=== PATIENT | female | born 1960 | race Caucasian/White ===

== ENCOUNTER 2025-02-26 16:32 | Emergency (ER) | payer MEDICARE, SELFPAY ==
[2025-02-26 16:34] VITALS: BP 170/97
[2025-02-26 17:04] LABS: Hematocrit 43.0 % (37.0-47.0); Hemoglobin 14.5 g/dL (12.0-16.0); Mean Corp Hgb Conc. 33.7 g/dL (33.0-37.0); Mean Corpuscular Volume 89.2 fL (81.0-99.0); Nucleated Red Blood Cells % 0 %; Platelet Count 260 10^3/uL (130-400); Red Cell Dist. Width 12.6 % (11.5-14.5)
[2025-02-26 17:14] LABS: ALT (SGPT) 50 U/L (0-35); AST (SGOT) 41 U/L (14-36); Albumin 4.4 g/dl (3.5-5.0); Alkaline Phosphatase 104 U/L (38-126); Blood Urea Nitrogen 17 mg/dl (7-17); Calcium 9.9 mg/dl (8.4-10.2); Carbon Dioxide 28 mmol/L (22-30); Chloride 104 mmol/L (98-107); Glucose 168 mg/dl (70-99); Potassium 4.6 mmol/L (3.5-5.1); Sodium 137 mmol/L (135-145); Total Protein 6.8 g/dl (6.3-8.2); eGFR > 60.00
[2025-02-26 19:01] VITALS: BP 145/75
[2025-02-26 19:17] VITALS: BMI 41.6
[2025-02-26] MEDS: TYLENOL 1000 MG PO (19:46)
--- NOTE | 2025-02-26 19:53 | ED.GENMED ---
History of Present Illness
General
Chief Complaint: Facial Problem
Time Seen by Provider: 02/26/25 18:43
History of Present Illness
History of Present Illness:
62-year-old female with prior history of lymphoma, in remission, presenting to the emergency department for left facial paralysis. Patient reports she noticed the symptoms a few hours prior to arrival when she was at the pool. She reports that her
face just felt strange, and was not moving the same as the right side of her face. Does note that she has been having a headache. Denies any head trauma or fall. Last week she felt strange sensation in her left upper jaw. Denies any fever.
Denies neck pain. Denies any weakness or numbness to her extremities. Denies any numbness to her face. Denies any recent bug bite or tick exposure. Denies additional acute medical complaint
Phy Exam
Physical Exam
Physical Exam:
General: Well-appearing, no clinical signs of dehydration, nontoxic and in no acute distress
HEENT: protecting airway
Neck: appears supple
CV: Normal heart rate, regular rhythm
Resp: No accessory muscle use, no increased work of breathing, lungs clear to auscultation bilaterally
Abd: No distention
Extremities: No deformities, no swelling
Neuro: alert, mild paralysis to the left side of the face, isolated. Sensation intact. No additional focal neurologic deficits
: deferred
Rectal: deferred
Psych: Normal affect
Skin: Intact
Course
Orders/Labs/Results
Orders:
Orders
02/26/25 16:48
CT Head W/o Iv Contrast Urgent
Comment:
Reason For Exam: left headache
02/26/25 16:49
Complete Blood Count/With Diff Urgent
Comprehensive Metabolic Panel Urgent
Lyme Progressive Urgent
02/26/25 19:43
Acetaminophen [Tylenol] 1,000 mg PO NOW STA
02/26/25 20:58
Prednisone [Deltasone] 60 mg PO NOW STA
Valacyclovir HCl [Valtrex] 1,000 mg PO ONCE ONE
Abnormal Lab Results
02/26/25
16:49
Absolute Lymphs (auto) 0.9 L 10^3/uL
(1.2-3.4)
Lymphocytes % 15.1 L %
(20.5-51.1)
Monocytes % 11.2 H %
(1.7-9.3)
Glucose 168 H mg/dl
(70-99)
AST 41 H U/L
(14-36)
ALT 50 H U/L
(0-35)
02/26/25 16:49
02/26/25 16:49
Vital Signs
Initial and Last Documented VS:
Initial Vital Signs
Temp Pulse Resp BP Pulse Ox
97.6 F 91 20 170/97 97
02/26/25 16:34 02/26/25 16:34 02/26/25 16:34 02/26/25 16:34 02/26/25 16:34
Last Documented Vital Signs
Temp Pulse Resp BP Pulse Ox
97.6 F 87 16 133/73 95
02/26/25 16:34 02/26/25 20:00 02/26/25 20:00 02/26/25 20:00 02/26/25 20:00
MDM/Problems Addressed
MDM/Problems Addressed:
64-year-old female presenting to the emergency department for left-sided facial paralysis. Vital signs on arrival significant for mild hypertension, however improved without intervention.
On exam, patient is resting comfortably, no acute distress or discomfort. Patient has mild paralysis to the left side of the face, isolated to the left side of the face and including the entire left side. Symptoms appear most consistent with
palsy. No additional focal neurologic deficits with intact strength and sensation to bilateral upper and lower extremities. Without present concern for acute CVA. CT brain ordered prior to my assessment. Will obtain. Labs also drawn prior to my
assessment, unremarkable. Will also send a Lyme titer given endemic region and current season of summer. Patient afebrile, nontoxic, no meningismus. No tender cervical lymphadenopathy. Given early onset of symptoms, will start on steroids as
well as acyclovir
20:50 - CT brain is unremarkable. On reassessment patient remained stable. Ultimately feel stable for discharge with close interval follow-up with primary care doctor. Prescriptions sent for both steroids and valacyclovir. Return precautions
discussed and patient verbalized understanding.
*Pulse Oximetry
SaO2: 95
Oxygen Mode of Delivery: Room air
Patient hypoxic: no
*Critical Care Note
Total Time (30-74mins, 75-104mins- exclusive of procedures): Not Applicable
ED Attending Note
-
Portions of this chart may have been created with voice recognition software.� Occasional wrong word or��sound alike� substitutions may have occurred due to the inherent limitations of voice recognition software.
Discharge Plan
Departure
Referrals:
NONE,* [Family Provider, Internal Medicine]
Interventions
Interventions:
*Risk Screen - Suicide Last Done: 02/26/25 16:34
*General Assessment Last Done: 02/26/25 19:05
*Neglect/Abuse Screening Last Done: 02/26/25 19:05
*ED- Fall Risk Assessment Last Done: 02/26/25 19:05
*ED COVID-19 Vaccine History Last Done: 02/26/25 19:05
ED- Neurological Assessment Last Done: 02/26/25 19:05
ED-Skin Assessment Last Done: 02/26/25 19:05
Discharge Date and Time
Print Language: GREEK
[2025-02-26 20:00] VITALS: BP 133/73
[2025-02-26 21:00] VITALS: BP 115/69
[2025-02-26] MEDS: DELTASONE 60 MG PO (21:10)
[2025-02-26] MEDS: VALTREX 1000 MG PO (21:10)
[2025-02-27 16:43] LABS: Lyme Antibody Screen, EIA Negative (Negative)
== END 2025-02-26 21:27 | disposition home or self-care (01) ==
LOC: EMR 16:32
PROVIDERS: Emergency Medicine; EMERGENCY PHYSICIAN Student in an Organized Health Care Education/Training Program
DX: G51.0 Bell's palsy (principal); C85.9A Non-Hodgkin lymphoma, unspecified, in remission
CPT/HCPCS: 99284; 70450; 80053; 85025; 86618